=== PATIENT | male | born 1980 | race Caucasian/White ===

== ENCOUNTER → 2017-11-19 13:19 | Outpatient (CLI) | payer OTHER, SELFPAY ==
--- NOTE | 2017-11-19 | DI.MRI.S_ITS ---
PROCEDURE: MR LUMBAR SPINE WO CON INDICATIONS: LUMBAR RADICULOPATHY TECHNIQUE: Noncontrast sagittal T1 spin echo and T2 fast echo, sagittal STIR, axial T1 and T2 fast spin echo through the lumbar spine. In cases with scoliosis, additional coronal T2 fast spin echo may be performed. COMPARISON: None. FINDINGS: Image quality: Excellent. Alignment and Curvature: There is normal bony alignment. Bone Marrow: Marrow is of normal overall signal. No acute vertebral body compression fractures. Spinal Cord: Conus medullaris terminates at the L1-L2 level. Visualized cord demonstrates normal signal and size. Paraspinous Soft Tissues: No paravertebral masses. L1-L2: Preserved disc height. Mild disc desiccation. There is diffuse posterior disc bulge. The central canal is mildly narrowed. No foraminal stenosis. L2-L3: Preserved disc height and disc signal. There is mild posterior disc bulge. The central canal is patent. No foraminal stenosis. L3-L4: Mild loss of disc height and disc signal. There is diffuse posterior disc bulge. The central canal is mildly narrowed. Mild bilateral foraminal stenosis. L4-L5: Mild loss of disc height and disc signal. There is diffuse posterior disc bulge and posterior central annular tear. The central canal is minimally narrowed. Mild bilateral foraminal stenosis. L5-S1: Atxp-ca-hinvhxwt loss of disc height and disc signal. There is diffuse posterior disc bulge and right posterior paramedian disc extrusion measuring 13 x 10 x 8 mm, occupying the right lateral recess between the S1 nerve root. Small right paramedian annular tear is noted. The central canal is patent. Moderate to severe left and moderate right foraminal stenosis. IMPRESSION: 1. Multilevel degenerative disc disease in lumbar spine as described. 2. Mild central canal stenosis at L2-L3 and L3-L4. 3. Multilevel foraminal stenoses as described. 4. Right posterior paramedian disc extrusion at L5-S1, which occupies the right lateral recess causing right S1 nerve root impingement. Dictated by: Doris Rodriguez M.D. on 11/19/2017 at 14:43 Approved by: Doris Rodriguez M.D. on 11/19/2017 at 14:54
== END ==
PROVIDERS: Family Provider Family Medicine; PCP Family Medicine; Visit Provider Family Medicine
DX: M51.16 Intervertebral disc disorders with radiculopathy, lumbar region (principal); M48.061 Spinal stenosis, lumbar region without neurogenic claudication; M48.07 Spinal stenosis, lumbosacral region; M51.27 Other intervertebral disc displacement, lumbosacral region
CPT/HCPCS: 72148

== ENCOUNTER → 2019-12-19 10:30 | Outpatient (CLI) | payer OTHER, SELFPAY ==
[2019-12-20 07:41] LABS: COVID19 Sendout Not Detected (Not Detect)
== END ==
PROVIDERS: Family Provider Family Medicine; PCP Family Medicine; Visit Provider Physician Assistant
DX: Z11.59 Encounter for screening for other viral diseases (principal)
CPT/HCPCS: 87635

== ENCOUNTER → 2020-01-24 09:10 | Outpatient (CLI) | payer OTHER, SELFPAY ==
[2020-01-24 15:05] LABS: COVID19 -Nasal RAPID Negative (Negative)
== END ==
PROVIDERS: Family Provider Family Medicine; PCP Family Medicine; Visit Provider Family Medicine Sleep Medicine
DX: Z11.59 Encounter for screening for other viral diseases (principal); G47.00 Insomnia, unspecified; G47.19 Other hypersomnia; G47.33 Obstructive sleep apnea (adult) (pediatric); R06.83 Snoring
CPT/HCPCS: 87635; C9803

== ENCOUNTER → 2022-07-28 09:41 | Outpatient (CLI) | payer OTHER, SELFPAY ==
--- NOTE | 2022-07-28 | DI.US.S_ITS ---
PROCEDURE: US ABDOMEN LIMITED INDICATIONS: UMBILICAL HERNIA TECHNIQUE: Real-time focused scanning was performed of the abdomen, with image documentation. COMPARISON: None. FINDINGS: Hernias are seen within the periumbilical region containing fat and bowel. Fascial defects are seen measuring 1.9 cm and 2.5 cm. IMPRESSION: Abdominal wall hernias are seen containing fat and bowel. Please consider surgical referral. If clinically appropriate, a dedicated CT of the area with at least IV contrast could also be considered for further evaluation. Dictated by: Vincent Castelan M.D. on 07/28/2022 at 16:45 Approved by: Vincent Castelan M.D. on 07/28/2022 at 16:47
== END ==
PROVIDERS: Family Provider Family Medicine; PCP Family Medicine; Referring Provider Family Medicine; Visit Provider Family Medicine
DX: K42.9 Umbilical hernia without obstruction or gangrene (principal)
CPT/HCPCS: 76705

== ENCOUNTER 2022-10-07 06:50 | Day surgery (SDC) | payer OTHER, SELFPAY ==
[2022-09-25 14:56] VITALS: BMI 29.9
[2022-10-07] VITALS (8 sets, daily range): BP systolic 86–126; BP diastolic 37–81; PULSE 87–99; RESP 10–18; TEMP 36.2–36.6; O2SAT 91–98; BMI 29.9
[2022-10-07] MEDS: LACTATED RINGERS 1,000 ML 42 ML IV (07:39)
--- NOTE | 2022-10-07 08:12 | PM.HP.1 ---
History of Present Illness History of Present Illness Date Patient Seen: 10/07/22 Time Patient Seen: 08:12 Chief complaint: Open Umbilical Hernia Repair w/mesh Narrative: 42-year-old man who presented with an umbilical hernia. See the office note from August for details. An ultrasound showed there were actually 2 fascial defects. [facility] Medical History (Updated 08/18/22 @ 10:36 by Geremias Mullins MD) Excessive daytime sleepiness Hypotestosteronism Insomnia (~2009) Obstructive sleep apnea (~12/21/19) Snoring (~2009) Surgical History (Updated 09/29/22 @ 10:53 by Nichole Castaneda RN) History of surgery (04/2012) History of surgery (05/2016) Hx of LASIK Family History Family/Other Diabetes mellitus Father Diabetes mellitus Depression Social History household members: spouse Smoking Status: Never smoker alcohol intake: current Meds Home Medications and Allergies Home Medications Medication Instructions Recorded Confirmed Type albuterol sulfate 90 mcg/actuation 2 puff INH Q4H PRN #1 ea 03/21/17 10/07/22 Rx aerosol inhaler (Ventolin HFA) testosterone cypionate 100 mg/mL 100 mg IM Q2W 12/05/19 10/07/22 History intramuscular oil dulaglutide 3 mg/0.5 mL 3 mg SUBCUT QWEEK 09/29/22 10/07/22 History subcutaneous pen injector (Trulicity) insulin glargine 100 unit/mL (3 10 unit SUBCUT DAILY 09/29/22 10/07/22 History mL) subcutaneous pen (Lantus Solostar U-100 Insulin) metformin 1,000 mg tablet 1,000 mg PO BID 09/29/22 10/07/22 History Novolin N FlexPen See Rx Instructions .Route .COMPLEX 10/07/22 10/07/22 History Allergies Allergy/AdvReac Type Severity Reaction Status Date / Time prednisone AdvReac High Blood Verified 10/07/22 07:11 Sugar Exam Vital Signs (past 8 hours): - 10/07/22 07:33 Temperature 97.8 F Pulse Rate 87 Respiratory Rate 17 Blood Pressure 126/81 Pulse Oximetry 97 Oxygen Delivery Method Room Air Oxygen Delivery Method Room Air Narrative Exam Narrative: Small reducible umbilical hernia Assessment & Plan Assessment and plan (1) Umbilical hernia without obstruction and without gangrene: Status: Acute Plan We discussed risks and benefits of open umbilical hernia repair with mesh. If there are 2 fascial defects I will repair both through the same skin incision. He would like to proceed.
[2022-10-07] MEDS: CEFAZOLIN 2 GM/100 ML PREMIX 100 ML IV (08:20)
[2022-10-07] MEDS: BUPIVACAINE 0.5% (PF) 30 ML, EPINEPHrine 0.15 MG INJ (08:30)
[2022-10-07] MEDS: ACETAMINOPHEN IV 1,000 MG/100 ML VIAL 400 MG IV (08:30)
--- NOTE | 2022-10-07 08:54 | P.OP_ITS ---
Operative Date/Time/Diagnoses Date of procedure: 10/07/22 Time of procedure: 08:54 Pre-op diagnosis: Umbilical hernia Post-op diagnosis: same Procedure & Clinicians Procedure: Open umbilical hernia repair with mesh Same procedure as scheduled: Yes Surgeon: Geremias Mullins Swage Toolsetter: Alfonso Hermosillo Anesthesia Type: General Operative Notes Procedure in detail: Ancef was administered. The patient was brought to the operating room, placed on the table in the supine position and general endotracheal anesthesia was induced. The abdomen was prepped and draped in the usual fashion. A time-out was performed. A 6 cm curvilinear incision was made inferior to the umbilicus. The hernia sac was dissected free from the surrounding subcutaneous adipose tissue. The hernia was dissected off the umbilical stalk using a combination of cautery, sharp and blunt dissection. The fat containing hernia was dissected free from the fascial ring and allowed to drop back down into the abdomen. The fascia was then closed transversely with 3 interrupted 0 Ethibond sutures. The subcutaneous adipose tissue was cleared off of the anterior sheath circumferentially about 2 cm in each direction. A piece of polypropylene mesh was trimmed to fit over the fascial closure and secured with Tisseel. Once the Tisseel was dried the umbilical skin was tacked down to the mesh with a single 3-0 Vicryl stitch. The skin was closed with multiple interrupted 3-0 Vicryl dermal sutures followed by a running 4 Monocryl subcuticular closure. Steri-Strips were applied and an abdominal binder was applied. EBL: 2 mL Post-operative Disposition: PACU
--- NOTE | 2022-10-07 09:23 | SUR.PHASEI ---
BG post op 92
--- NOTE | 2022-10-07 10:22 | SUR.PHASEII ---
pt and both state they understand discharge instructions. Pt discharged with .
== END 2022-10-07 10:23 | disposition home or self-care (01) ==
PROVIDERS: Family Provider Family Medicine; PCP Family Medicine; Referring Provider Surgery; Visit Provider Surgery
PROC: (CPT 49593; principal; 2022-10-07 08:00)
DX: K42.9 Umbilical hernia without obstruction or gangrene (principal); G47.33 Obstructive sleep apnea (adult) (pediatric)
CPT/HCPCS: 49593; J0131; J0171; J0690; J1100; J1885; J2405; J2704; J3010

== ENCOUNTER 2023-11-16 09:24 | Emergency (ER) | payer OTHER, SELFPAY ==
[2023-11-16 09:36] VITALS: BP 160/105; PULSE 97; RESP 14; TEMP 36.7; O2SAT 99; BMI 31.4
--- NOTE | 2023-11-16 11:05 | ED_ITS ---
HPI - Neuro Symptoms/Deficit General Chief Complaint: Neuro Symptoms/Deficit Stated Complaint: L Arm Injury, Unable to open L Hand Time Seen by Provider: 11/16/23 10:59 Source: patient Mode of arrival: Ambulatory Limitations: no limitations History of Present Illness HPI Narrative: 43-year-old male insulin-dependent diabetic the past 3 years presents with complaint of left neck/thoracic pain and weakness of the left hand. Patient states he has had some chronic discomfort in his neck on and off. He has occasionally had some numbness and tingling particularly the 4th and 5th digits. Two days ago on Thursday he was doing some work around his home the ladder started to fall and he extended his arms upward grabbing it sort of pulling down with his weight. Patient felt what felt like a pop or something give in the upper thoracic back on the left. Patient states since then he is noticed some increased weakness of the left arm and hand. 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 He was also appreciate a little bit of paresthesias. He states no pain in his spinal column itself. He describes the pain is behind the shoulder upper thoracic region. It is worse with movement he does note some increased discomfort with rotation of the neck but no increase of paresthesias with rotation. Has had prior surgery of the left AC joint. Patient states has seen his primary care physician in the past but did not have weakness associated. He has been on insulin for about 3 years also takes testosterone and Trulicity. No tobacco, occasional alcohol, no recreational drugs. Dr. Moya is his primary care physician. On Anticoagulants: No Related Data Home Medications Medication Instructions Recorded Confirmed testosterone cypionate 100 mg/mL 100 mg IM Q2W 12/05/19 11/05/22 intramuscular oil dulaglutide 3 mg/0.5 mL 3 mg SUBCUT QWEEK 09/29/22 11/05/22 subcutaneous pen injector (Trulicity) insulin glargine 100 unit/mL (3 10 unit SUBCUT DAILY 09/29/22 11/05/22 mL) subcutaneous pen (Lantus Solostar U-100 Insulin) metformin 1,000 mg tablet 1,000 mg PO BID 09/29/22 11/05/22 Novolin N FlexPen See Rx Instructions .Route .COMPLEX 10/07/22 11/05/22 Previous Rx's Medication Instructions Recorded albuterol sulfate 90 mcg/actuation 2 puff INH Q4H PRN #1 ea 03/21/17 aerosol inhaler (Ventolin HFA) cyclobenzaprine 10 mg tablet 10 mg PO TID PRN muscle spasm #14 11/16/23 tabs methylprednisolone 4 mg tablets in See Rx Instructions PO .COMPLEX 11/16/23 a dose pack (Medrol (Elkin)) #21 ea Allergies Allergy/AdvReac Type Severity Reaction Status Date / Time prednisone AdvReac High Blood Verified 11/16/23 09:41 Sugar Review of Systems Review of Systems ROS Unobtainable: All systems reviewed & are unremarkable except as noted in HPI and below Hematologic/Lymphatic On Anticoagulants: No Patient History Medical History Hypotestosteronism Excessive daytime sleepiness Snoring (~2009) Insomnia (~2009) Obstructive sleep apnea (~12/21/19) Surgical History History of surgery (05/2016) History of surgery (04/2012) Hx of LASIK Family History Family/Other Diabetes mellitus Father Diabetes mellitus Depression Social History household members: spouse Smoking Status: Never smoker alcohol intake: current Smoking Status: Never smoker alcohol intake frequency: a few times a week Substance Use Type: does not use Exam Narrative Exam Narrative: GEN: well nourished, well appearing male, alert and oriented x 3, patient appears to be in mild distress. HEENT: Atraumatic, pupils are equal round reactive to light, extraocular movements are intact, nares are clear. No cervical vertebral tenderness. Full range of motion. HEART: Regular rate and rhythm without murmur, clicks, rubs. LUNGS:Lungs clear to auscultation, no wheezes, rales, crackles, chest moves symmetrically ABD:bowel sounds normal, soft, non-tender, no guarding, rebound, rigidity, no masses noted, no hepatosplenomegaly MSCL: Non-tender, no muscle atrophy, no cervical or thoracic or lumbar vertebral tenderness. Patient's describes some discomfort lateral to the C7-T1 region and changed it to the scapular area. Full range of motion of bilateral upper extremities. Patient does have decrease in guest service team leader and strength of left compared to right but describes it as 4/5. Patient also has some decrease of strength with resistance with straight arms extended fully. No tenderness over the biceps region, nontender over the AC joint scapula or clavicle. 2+ radial pulses bilaterally. Patient does have sensation to light touch bilateral upper extremities. NEURO:CN 2-12 intact, sensation normal. SKIN: No rash, erythema or other skin changes. Initial Vital Signs Initial Vital Signs: Vital Signs Temperature 98.0 F 11/16/23 09:36 Pulse Rate 97 H 11/16/23 09:36 Respiratory Rate 14 11/16/23 09:36 Blood Pressure 160/105 H 11/16/23 09:36 Pulse Oximetry 99 11/16/23 09:36 Oxygen Delivery Method Room Air 11/16/23 09:36 Course Orders Ordered: ED Orders 11/16/23 11:18 CT cervical spine wo con Stat 11/16/23 12:48 MR cervical spine wo con Stat Discontinued Medications Ketorolac Tromethamine (Ketorolac 30 Mg/Ml Vial) 30 mg IM NOW ONE Stop: 11/16/23 11:20 Last Admin: 11/16/23 11:29 Dose: 30 mg Documented By: EMELIA Vital Signs Vital signs: Vital Signs - 8 hr 11/16/23 09:36 11/16/23 12:46 11/16/23 12:47 Temperature 98.0 F Pulse Rate 97 H 82 80 Respiratory Rate 14 18 Blood Pressure 160/105 H 124/80 Pulse Oximetry 99 97 97 Oxygen Delivery Method Room Air Room Air 11/16/23 12:47 11/16/23 12:47 11/16/23 15:47 Temperature Pulse Rate 77 81 Respiratory Rate Blood Pressure 124/80 Pulse Oximetry 97 96 Oxygen Delivery Method 11/16/23 15:48 Temperature Pulse Rate Respiratory Rate Blood Pressure 135/81 Pulse Oximetry Oxygen Delivery Method MDM - Neuro Symptoms/Deficit Imaging Data CT cervical spine: Radiologist's Impression: [address] [address] [address] Scan Report Signed Patient: Alfonso Snow MR#: [id number] : 1980 Acct:[id number] Age/Sex: 43 / M Date of Service: 11/16/23 Loc: ED Accession Number: [id number] Procedure: CT cervical spine wo con Ordering Provider: Jannette Campos D.O. PROCEDURE: CT CERVICAL SPINE WO CON INDICATIONS: pain left neck/trap, weak left hand after abrupt pulling mot TECHNIQUE: Noncontrast 3 mm thick sections acquired from the skull base to the T4 level. Sagittal and coronal reformats were then constructed. For radiation dose reduction, the following was used: automated exposure control, adjustment of mA and/or kV according to patient size. COMPARISON: None. FINDINGS: Image quality: Excellent. Bones: No fractures or traumatic subluxation. Straightening of the normal cervical lordosis. Mild multilevel degenerative changes with osteophytosis, disc height loss and facet/uncal arthropathy. Small disc osteophyte complexes at C5-C6 and C6-C7 with mild ventral effacement of the central canal. Visualized superior ribs are intact. Soft tissues: Prevertebral soft tissues are normal in thickness. No paravertebral hematomas. No apical pneumothoraces. Scattered punctate calcifications in the bilateral parotid glands. Small mucous retention cyst in the left maxillary sinus. IMPRESSION: 1. No displaced fracture or traumatic subluxation. 2. Straightening of the normal cervical lordosis which may be secondary to muscular strain/spasm. 3. Mild multilevel degenerative changes, notably at C5-C6 and C6-C7. If clinical symptoms persist, consider an MRI for further evaluation. 4. Scattered calcifications in the parotid gland which is nonspecific and can be seen in the setting of chronic inflammatory conditions, autoimmune disease, etc. Dictated by: Iban Thorne M.D. on 11/16/2023 at 11:03 Approved by: Iban Thorne M.D. on 11/16/2023 at 11:08 cervical MR: Radiologist's Impression: [place] [address] Magnetic Resonance Report Signed Patient: Alfonso Snow MR#: [id number] : 1980 Acct:[id number] Age/Sex: 43 / M Date of Service: 11/16/23 Loc: ED Accession Number: [id number] Procedure: MR cervical spine wo con Ordering Provider: Mank,Jannette C D.O. PROCEDURE: MR CERVICAL SPINE WO CON INDICATIONS: left hand weakness, neck pain, left 4/5 fingers numb TECHNIQUE: Noncontrast sagittal T1 spin echo and T2 fast spin echo, sagittal STIR, foramin al oblique sagittal T2 fast spin echo, and axial gradient echo or T2 fast spin echo through the cervical spine. COMPARISON: CT cervical spine 11/16/2023. FINDINGS: Image quality: Diagnostic. Alignment and Curvature: Straightening the normal cervical lordosis. Multilevel intervertebral disc height loss. Multilevel disc osteophyte complex, worse at C6-C7 resulting in moderate effacement and narrowing of the central canal. Moderate posterior disc osteophyte complex with mild effacement and narrowing of the central canal at C7-T12. Small posterior disc osteophyte complex at C5-C6 Bone Marrow: Marrow demonstrates normal overall signal. Spinal Cord: Visualized spinal cord has normal size and signal. No cerebellar tonsillar herniation. Paraspinous Soft Tissues: No paravertebral masses. Prevertebral soft tissues are normal in thickness. C2-C3: Normal appearance. C3-C4: Normal appearance. C4-C5: Normal appearance. C5-C6: Posterior disc osteophyte complex resulting in minimal effacement of central canal. C6-C7: Posterior disc osteophyte complex resulting in moderate to severe effacement and narrowing of the central canal. C7-T1: Posterior disc osteophyte complex resulting in mild effacement of the central canal. IMPRESSION: Multilevel degeneration, worse at C6-C7 with moderate to severe effacement and narrowing of the central canal. Approved by: Skyla Vivas M.D.,Ph.D. on 11/16/2023 at 15:08 MDM Narrative Medical decision making narrative: Patient's location of pain seems most consistent with possible musculoskeletal issue could not have an injury to the muscle or ligament itself but patient does have slight decrease in guest service team leader and left upper extremity strength in overall. Suspect patient may have had more involvement of the cervical spine or nerves. Patient has had some baseline paresthesias of the 4th and 5th fingers in the past and had some discomfort in the neck in the past but not to this extent. CT cervical spine was obtained unlikely to have fracture but we will evaluate for joint spacing and cervical canal. Cervical MR, multilevel degenerative worse at C6-7 with moderate to severe effacement of the central canal at C7-T12. There is some narrowing of the central canal. Spoke with on-call Orthopedic surgery, spoke with Dr. Grier. Recommends steroid Dosepak, muscle relaxer anti-inflammatories. Does note patient's has diabetes so could affect sugars. We would recommend outpatient follow up with either Dr. Beck or Dr. Lepe if not improving may require epidural injections versus decompression. Discussed with patient recommendations, return precautions as well as red flag symptoms. All questions answered. Patient does have follow up with Dr. Moya available as needed. Discussed with patient return precautions if he is having worsening weakness he should return for re-evaluation. Discharge Plan Departure Patient Disposition: Home Clinical Impression: Cervical radiculopathy Instructions: DI for Cervical Radiculopathy Activity Restrictions/Additional Instructions: Follow up with either orthopedic surgery or pain management. Contacts included for both below. There is some narrowing at the C5-6 region of the spinal canal as well as effacement. It was recommended by Orthopedic surgery to have a short course of steroids, muscle relaxers and anti-inflammatories. If your blood sugar is very difficult to control you can stop the steroids. Take muscle relaxers as needed. You can take 1 tablet every 8 hours. This medication can make you sleepy do not drive, perform has a activities or make major decisions while taking it. Take NSAIDs you can take up to 800 mg of ibuprofen every 8 hours as needed. You can take Tylenol with this medication up to a 1000 mg every 6 hours as needed. Prescription were sent to [facility] in [place]. Please return for rapidly worsening symptoms increasing weakness, increasing difficulty with guest service team leader or strength, new pain inability to lift or move your arm, loss of bowel or bladder control or other new or concerning changes. Prescriptions: New cyclobenzaprine 10 mg tablet 10 mg PO TID PRN (Reason: muscle spasm) Qty: 14 0RF methylprednisolone [Medrol (Elkin)] 4 mg tablets,dose pack See Rx Instructions .ROUTE .COMPLEX Qty: 21 0RF Rx Instructions: 6 tabs p.o. x1 day, then 5 tabs p.o. x1 day, then 4 tablets p.o. x1 day, then 3 tabs p.o. x1 day, then 2 tabs p.o. x1 day, then 1 tab p.o. x1 day No Action albuterol sulfate [Ventolin HFA] 90 MCG/PUFF HFA aerosol inhaler 2 puff INH Q4H PRNQty: 1 0RF metformin 1,000 mg Tablet 1,000 mg PO BID insulin glargine [Lantus Solostar U-100 Insulin] 100 unit/mL (3 mL) Insulin Pen 10 unit SUBCUT DAILY Trulicity 3 mg/0.5 mL Pen Injector 3 mg SUBCUT QWEEK Novolin N FlexPen See Rx Instructions .ROUTE .COMPLEX Rx Instructions: Sliding scale testosterone cypionate 100 mg/mL oil 100 mg IM Q2W Referrals: Jake Lepe DO [Physician] - Angel Ferrell MD [Physician] - Billy Moya MD [Primary Care Provider] - Stand Alone Forms: Patient Portal/API
--- NOTE | 2023-11-16 11:18 | DI.CT.S_ITS ---
PROCEDURE: CT CERVICAL SPINE WO CON INDICATIONS: pain left neck/trap, weak left hand after abrupt pulling mot TECHNIQUE: Noncontrast 3 mm thick sections acquired from the skull base to the T4 level. Sagittal and coronal reformats were then constructed. For radiation dose reduction, the following was used: automated exposure control, adjustment of mA and/or kV according to patient size. COMPARISON: None. FINDINGS: Image quality: Excellent. Bones: No fractures or traumatic subluxation. Straightening of the normal cervical lordosis. Mild multilevel degenerative changes with osteophytosis, disc height loss and facet/uncal arthropathy. Small disc osteophyte complexes at C5-C6 and C6-C7 with mild ventral effacement of the central canal. Visualized superior ribs are intact. Soft tissues: Prevertebral soft tissues are normal in thickness. No paravertebral hematomas. No apical pneumothoraces. Scattered punctate calcifications in the bilateral parotid glands. Small mucous retention cyst in the left maxillary sinus. IMPRESSION: 1. No displaced fracture or traumatic subluxation. 2. Straightening of the normal cervical lordosis which may be secondary to muscular strain/spasm. 3. Mild multilevel degenerative changes, notably at C5-C6 and C6-C7. If clinical symptoms persist, consider an MRI for further evaluation. 4. Scattered calcifications in the parotid gland which is nonspecific and can be seen in the setting of chronic inflammatory conditions, autoimmune disease, etc. Dictated by: Iban Thorne M.D. on 11/16/2023 at 11:03 Approved by: Iban Thorne M.D. on 11/16/2023 at 11:08
[2023-11-16] MEDS: KETOROLAC 30 MG/ML VIAL IM (11:29)
[2023-11-16 12:46] VITALS: PULSE 82; O2SAT 97
[2023-11-16 12:47] VITALS: BP 124/80; PULSE 77; PULSE 80; RESP 18; O2SAT 97
--- NOTE | 2023-11-16 12:48 | DI.MRI.S_ITS ---
PROCEDURE: MR CERVICAL SPINE WO CON INDICATIONS: left hand weakness, neck pain, left 4/5 fingers numb TECHNIQUE: Noncontrast sagittal T1 spin echo and T2 fast spin echo, sagittal STIR, foraminal oblique sagittal T2 fast spin echo, and axial gradient echo or T2 fast spin echo through the cervical spine. COMPARISON: CT cervical spine 11/16/2023. FINDINGS: Image quality: Diagnostic. Alignment and Curvature: Straightening the normal cervical lordosis. Multilevel intervertebral disc height loss. Multilevel disc osteophyte complex, worse at C6-C7 resulting in moderate effacement and narrowing of the central canal. Moderate posterior disc osteophyte complex with mild effacement and narrowing of the central canal at C7-T12. Small posterior disc osteophyte complex at C5-C6 Bone Marrow: Marrow demonstrates normal overall signal. Spinal Cord: Visualized spinal cord has normal size and signal. No cerebellar tonsillar herniation. Paraspinous Soft Tissues: No paravertebral masses. Prevertebral soft tissues are normal in thickness. C2-C3: Normal appearance. C3-C4: Normal appearance. C4-C5: Normal appearance. C5-C6: Posterior disc osteophyte complex resulting in minimal effacement of central canal. C6-C7: Posterior disc osteophyte complex resulting in moderate to severe effacement and narrowing of the central canal. C7-T1: Posterior disc osteophyte complex resulting in mild effacement of the central canal. IMPRESSION: Multilevel degeneration, worse at C6-C7 with moderate to severe effacement and narrowing of the central canal. Approved by: Skyla Vivas M.D.,Ph.D. on 11/16/2023 at 15:08
[2023-11-16 15:47] VITALS: PULSE 81; O2SAT 96
[2023-11-16 15:48] VITALS: BP 135/81
--- NOTE | 2023-11-16 17:38 | PC.NURSE ---
Pt called stating that pharmacy was closed. Discussed w/ Dr. Campos who ordered po doses for pt who picked up at ED. Instructed to coal picker meds as ordered in the am. Pt verbalized understanding.
[2023-11-16] MEDS: predniSONE 20 MG TABLET 60 MG PO (17:44)
[2023-11-16] MEDS: CYCLOBENZAPRINE 10 MG TABLET PO (17:44)
== END 2023-11-16 16:03 | disposition home or self-care (01) ==
PROVIDERS: Emergency Provider Emergency Medicine; Family Provider Family Medicine; PCP Family Medicine
DX: M54.12 Radiculopathy, cervical region (principal); R53.1 Weakness; Z79.899 Other long term (current) drug therapy
CPT/HCPCS: 72125; 72141; 96372; 99284; J1885

== ENCOUNTER → 2023-11-23 11:30 | Outpatient (CLI) | payer OTHER, SELFPAY ==
--- NOTE | 2023-11-23 11:32 | DI.RAD.S_ITS ---
PROCEDURE: XR CERVICAL SPINE 4V OR 5V INDICATIONS: NECK PAIN TECHNIQUE: 5 views of the cervical spine acquired. COMPARISON: None. FINDINGS: Bones: No fractures or dislocations to the T1 level. Oblique images demonstrate no bony foraminal stenoses. Mild disc height loss at C5-6, C6-7, C7-T1, C4-5. No significant facet arthrosis. Soft tissues: No prevertebral soft tissue swelling. IMPRESSION: Mild, multilevel degenerative disc disease without significant facet arthrosis. Dictated by: Richard York M.D. on 11/23/2023 at 12:19 Approved by: Richard York M.D. on 11/23/2023 at 12:20
== END ==
PROVIDERS: Family Provider Family Medicine; PCP Family Medicine; Referring Provider Physical Medicine & Rehabilitation; Visit Provider Physical Medicine & Rehabilitation
DX: M50.121 Cervical disc disorder at C4-C5 level with radiculopathy (principal)
CPT/HCPCS: 72050

== ENCOUNTER → 2023-11-26 08:49 | Outpatient (CLI) | payer OTHER, SELFPAY | PROVIDERS: Family Provider Family Medicine; PCP Family Medicine; Referring Provider Physical Medicine & Rehabilitation; Visit Provider Physical Medicine & Rehabilitation | DX: M54.12 Radiculopathy, cervical region (principal) | CPT/HCPCS: 95886; 95912 ==

== ENCOUNTER 2023-12-22 07:30 | Outpatient (CLI) | payer OTHER, SELFPAY ==
[2023-12-22] VITALS (9 sets, daily range): BP systolic 111–133; BP diastolic 60–78; PULSE 86–96; RESP 9–16; TEMP 37; O2SAT 94–98
--- NOTE | 2023-12-22 08:12 | DI.RAD.S_ITS ---
PROCEDURE: PAIN C/T INTERLAMINAR INJECT INDICATIONS: para left C6/7 TL ENEDINA COMPARISON: None. FINDINGS: Fluoroscopic spot filming was performed to verify placement of spinal needles at the C6-C7 level(s), as labeled on the films. Appropriate location(s) of the needle tip(s) was confirmed by injection of iodinated contrast. IMPRESSION: C6-C7 injection with fluoroscopic guidance. Please see operative note for full details. Dictated by: Deandre Mata M.D. on 12/22/2023 at 9:11 Approved by: Deandre Mata M.D. on 12/22/2023 at 9:12
[2023-12-22] MEDS: MIDAZOLAM 2 MG/2 ML VIAL IV (08:23)
[2023-12-22] MEDS: BUPIVACAINE 0.25% (PF) VIAL 2 ML INJ (08:28)
[2023-12-22] MEDS: DEXAMETHASONE 10 MG/ML VIAL 30 MG INJ (08:28)
[2023-12-22] MEDS: iopamidoL 15 ML VIAL 3 ML INJ (08:29)
--- NOTE | 2023-12-22 08:41 | P.PCN_ITS ---
Date/Time/Diagnoses Date of procedure: 12/22/23 Time of procedure: 08:41 Pre-procedure diagnosis: 1. CERVICAL STENOSIS, 2. CERVICAL HNP WITH UPPER EXTREMITY RADICULAR FEATURES Post-procedure diagnosis: same Procedure Notes Procedure: 1. FLUORSCOPICALLY GUIDED CONTRAST CONTROLLED INTERLAMINAR EPIDURAL STEROID INJECTION - C6/7 TL ENEDINA Indications: Alfonso is referred by Dr. Moya and Waterman for treatment of Cervical HNP with Upper Extremity Paresthesias. Physician: Jake Lepe Total Fluoroscopy time (seconds): 31 Total sedation minutes: 14 Complications: none Procedure in detail & Post-procedure care: FINDINGS Cervical Stenosis due to disc deterioration and nerve root irritation and nerve root irritation DESCRIPTION OF PROCEDURE Fluoroscopically guided, contrast-controlled C6/7 translaminar epidural steroid injection with conscious sedation. Following review of allergy and review of potential side effects and complications, including, but not necessarily limited to, infection, allergic reaction, local tissue breakdown, temporary as well as permanent nerve injury, stroke, paralysis, and possible , the patient indicated that patient understood and agreed to proceed. An informed consent document was signed by the patient, witnessed by a nurse, and placed in the patient's chart. Additionally, other treatment options including modalities, medications, and physical therapy were reviewed with the patient. After review of previous anaesthesic history and IV conscious sedation the patient was deemed safe to proceed with today?s procedure with IV conscious s edation as ASA class II designation. Safety time-out was performed to confirm patient ID, procedure to be performed and site of procedure. IV sedation was accomplished with a combination of 2mg of Versed administered by the RN after DO order, titrated to patient comfort during the course of the procedure while the patient remained responsive to all verbal commands. In the prone position, following sterile prep and drape of the cervical region, the C6/7 translaminar space was identified fluoroscopically. The skin was anesthetized via a 25-gauge 1.5-inch needle with 1% lidocaine solution. At this point, a 25-gauge, 2.5-inch short bevel spinal needle was atraumatically introduced and advanced under fluoroscopic guidance into epidural space at the C6/7 translaminar space. Depth was confirmed on lateral view. Radiological data, including multiple fluoroscopic views of the cervical spine, reveal a spinal needle at the C6/7 translaminar space. Lateral views then show placement of the needle in the epidural space. Subsequent views show contrast material flowing superiorly and inferiorly in the epidural space. DSA fluoroscopy with live contrast injection, once again, confirmed no vascular or intrathecal uptake. At this point, using loss of resistance technique with saline and air, the epidural space was entered. Following negative aspiration, injection of approximately 1.5 cc of Isovue-200 with live fluoroscopy in the AP view confirmed epidural flow in the epidural space without vascular or intrathecal uptake observed. Subsequently, a test dose of 1 cc of 1% lidocaine solution was injected and patient was observed for two minutes without signs or symptoms of complications, including abdominal pain, shortness of breath, bilateral upper or lower extremity weakness, nausea and vomiting, prior to steroid injection. At this point, 3cc or 30mg of dexamethasone was then injected without incident. The patient tolerated the procedure well without signs or symptoms of complications prior to being transferred to the recovery area for further monitoring, The patient was then transferred to the recovery area where they were observed for an appropriate period of time after the injection. The patient reported a VAS score of 6 prior to the procedure and a post-procedure VAS of 0. POST OP INSTRUCTIONS The patient was provided a Pain Log to continue to record their response to the target-specific procedure prior to follow-up visit with the referring provider. Additionally, specific post-injection care instructions and a contact number to our office were provided if concerns arise regarding possible complications associated with the procedure are suspected.
== END 2023-12-22 09:00 | disposition home or self-care (01) ==
LOC: RAD 07:30
PROVIDERS: Family Provider Family Medicine; PCP Family Medicine; Referring Provider Physical Medicine & Rehabilitation; Visit Provider Physical Medicine & Rehabilitation
DX: M48.02 Spinal stenosis, cervical region (principal); M50.123 Cervical disc disorder at C6-C7 level with radiculopathy
CPT/HCPCS: 62321; 99152; J1100; J2250; J3490

== ENCOUNTER → 2024-02-03 11:20 | Outpatient (CLI) | payer OTHER, SELFPAY ==
[2024-02-03 12:45] LABS: Appearance Urine UA CLEAR; Bilirubin Urine UA NEGATIVE (NEGATIVE); Color Urine UA YELLOW; Glucose Urine UA NEGATIVE (Negative); Ketones Urine UA TRACE (NEGATIVE); Leukocyte Esterase Urine UA NEGATIVE (NEGATIVE); Nitrite Urine UA NEGATIVE (Negative); Occult Blood Urine UA NEGATIVE (Negative); Protein Urine UA NEGATIVE (Negative); Urobilinogen Urine UA 0.2 E.U./dL (0.2)
[2024-02-03 12:50] LABS: Add Manual Diff / Slide Review NO; Basophils Absolute Auto 0 /uL (0-100); Basophils Percent Auto 0.5 % (0-2); Eosinophils Absolute Auto 100 /uL (0-450); Eosinophils Percent Auto 2.9 % (2-4); Hematocrit 44.4 % (41-53); Hemoglobin 15.1 g/dL (13.5-17.5); Lymphocytes Absolute Auto 1400 /uL (1100-4500); Lymphocytes Percent Auto 30.1 % (25-40); Mean Corpuscular HGB Conc 33.9 % (30-36); Mean Corpuscular Hemoglobin 30.9 PG (26-34); Mean Corpuscular Volume 91.2 fL (80-100); Monocytes Absolute Auto 400 /uL (0-900); Neutrophils Absolute Auto 2700 /uL (1500-7000); Neutrophils Percent Auto 57.5 % (50-75); Platelet Count 174 X10^3/uL (150-400); Red Blood Cell Count 4.87 X10^6/uL (4.5-5.9); Red Cell Distribution Width 13.5 % (11.6-14.8); White Blood Cell Count 4.7 X10^3/uL (4.5-11.0)
[2024-02-03 12:54] LABS: Bacteria Urine None Seen; Culture Indicated Urine Cult Not Indicated; RBC Urine None Seen (0-5/HPF); Squamous Epithelial Cell Urine None Seen (0-5/HPF); Urine Volume 10mL (spun); WBC Urine None Seen (0-5/HPF)
[2024-02-03 13:16] LABS: Alanine Aminotransferase 34 IU/L (<50); Albumin 4.5 g/dL (3.5-5.0); Albumin Globulin Ratio 1.9 (1.0-2.8); Alkaline Phosphatase 41 U/L (38-126); Aspartate Aminotransferase 28 IU/L (17-59); BUN Creatinine Ratio 22.8 (6-22); Bilirubin Total 0.8 mg/dL (0.2-1.3); Blood Urea Nitrogen 21 mg/dL (9-20); Calcium 9.7 mg/dL (8.4-10.2); Carbon Dioxide 30 mmol/L (22-32); Chloride 99 mmol/L (98-107); Estimated Glomerular Filt Rate > 60 mL/min (>60); Globulin 2.4 g/dL (1.7-4.1); Glucose 124 mg/dL (70-100); HEMOLYSIS < 15 (0-50); Sodium 137 mmol/L (137-145); Total Protein 6.9 g/dL (6.3-8.2)
[2024-02-03 13:44] LABS: Thyroid Stimulating Hormone 1.32 uIU/mL (0.47-4.68)
== END ==
LOC: LAB 11:24
PROVIDERS: Family Provider Family Medicine; PCP Family Medicine; Referring Provider Family Medicine; Visit Provider Family Medicine
DX: E10.9 Type 1 diabetes mellitus without complications (principal); R50.9 Fever, unspecified; R53.83 Other fatigue; R35.89 Other polyuria
CPT/HCPCS: 36415; 80053; 81001; 83036; 84443; 85025

== ENCOUNTER → 2024-02-04 13:08 | Outpatient (CLI) | payer OTHER, SELFPAY ==
[2024-02-04 13:37] LABS: Creatine Kinase 93 U/L (55-170)
[2024-02-08 12:12] LABS: Myoglobin Quantitative Urine < 2 ng/mL (0-13)
== END ==
PROVIDERS: Family Provider Family Medicine; PCP Family Medicine; Referring Provider Family Medicine; Visit Provider Family Medicine
DX: R50.9 Fever, unspecified (principal); R53.83 Other fatigue; Z98.1 Arthrodesis status
CPT/HCPCS: 36415; 82550; 83874

== ENCOUNTER → 2024-06-07 13:47 | Outpatient (CLI) | payer OTHER, SELFPAY ==
--- NOTE | 2024-06-07 13:49 | DI.MRI.S_ITS ---
PROCEDURE: MR CERVICAL SPINE WO CON INDICATIONS: cervical ACDF with left C8 radic TECHNIQUE: Noncontrast sagittal T1 spin echo and T2 fast spin echo, sagittal STIR, foraminal oblique sagittal T2 fast spin echo, and axial gradient echo or T2 fast spin echo through the cervical spine. COMPARISON: [facility], MR, MR CERVICAL SPINE WO CON, 11/16/2023, 14:20. FINDINGS: Image quality: Excellent. Alignment and Curvature: There is normal bony alignment. Bone Marrow: Interval postsurgical changes from anterior fixation at C6 through T1. There is mild associated metal artifact. Marrow demonstrates normal overall signal. Spinal Cord: Visualized spinal cord has normal size and signal. No cerebellar tonsillar herniation. Paraspinous Soft Tissues: No paravertebral masses. Prevertebral soft tissues are normal in thickness. C2-C3: No significant spinal canal stenosis or neural foraminal narrowing. C3-C4: Mild uncovertebral joint and facet hypertrophy result in mild narrowing of the bilateral neural foramina without significant spinal canal stenosis. C4-C5: Disc desiccation and mild bilateral vertebral joint and facet hypertrophy. Findings result in mild narrowing of the bilateral neural foramina without significant spinal canal stenosis. C5-C6: Disc desiccation and mild bilateral uncovertebral joint and facet hypertrophy. Findings result in mild narrowing of the bilateral neural foramina without significant spinal canal stenosis. C6-C7: Postsurgical changes with decompression of the spinal canal. Uncovertebral joint and facet hypertrophy are present. Mild to moderate right and moderate left neural foraminal narrowing. C7-T1: Postsurgical changes with decompression of the spinal canal. Uncovertebral joint and facet hypertrophy are present. Residual moderate to severe bilateral neural foraminal narrowing. IMPRESSION: 1. Postsurgical changes at C6 through T1 with decompression of the spinal canal. 2. No high-grade spinal canal stenosis. 3. High-grade neural foraminal narrowing at the C7-T1 level bilaterally. At least moderate left neural foraminal narrowing at the C6-7 level. Approved by: Fernando Woodson M.D. on 06/07/2024 at 16:09
== END ==
PROVIDERS: Family Provider Family Medicine; PCP Family Medicine; Referring Provider Physical Medicine & Rehabilitation; Visit Provider Physical Medicine & Rehabilitation
DX: M54.12 Radiculopathy, cervical region (principal); M48.02 Spinal stenosis, cervical region; Z98.1 Arthrodesis status
CPT/HCPCS: 72141

== ENCOUNTER → 2024-07-21 12:49 | Outpatient (CLI) | payer OTHER, SELFPAY | LOC: PHYS 12:50 | PROVIDERS: Family Provider Family Medicine; PCP Family Medicine; Referring Provider Physical Medicine & Rehabilitation; Visit Provider Physical Medicine & Rehabilitation | DX: M43.22 Fusion of spine, cervical region (principal); M54.12 Radiculopathy, cervical region | CPT/HCPCS: 95886; 95911 ==

== ENCOUNTER 2024-08-25 07:31 | Outpatient (CLI) | payer OTHER, SELFPAY ==
[2024-08-25] VITALS (9 sets, daily range): BP systolic 128–189; BP diastolic 69–78; PULSE 92–103; RESP 13–18; TEMP 36.6; O2SAT 94–99
[2024-08-25] MEDS: MIDAZOLAM 2 MG/2 ML VIAL IV ×2 (08:26→08:31)
[2024-08-25] MEDS: BUPIVACAINE 0.25% (PF) VIAL 2 ML INJ (08:35)
[2024-08-25] MEDS: DEXAMETHASONE 10 MG/ML VIAL 30 MG INJ (08:36)
[2024-08-25] MEDS: iopamidoL 15 ML VIAL 3 ML INJ (08:36)
--- NOTE | 2024-08-25 08:48 | P.PCN_ITS ---
Date/Time/Diagnoses Date of procedure: 08/25/24 Time of procedure: 08:48 Pre-procedure diagnosis: 1. CERVICAL STENOSIS, 2. CERVICAL HNP WITH UPPER EXTREMITY RADICULAR FEATURES Procedure Notes Procedure: FLUORSCOPICALLY GUIDED CONTRAST CONTROLLED INTERLAMINAR EPIDURAL STEROID INJECTION - C7/T1 TL ENEDINA Indications: Alfonso is referred by Dr. Moya for treatment of Cervical Stenosis. Physician: Jake Lepe Total Fluoroscopy time (seconds): 33 Total sedation minutes: 17 Complications: none Procedure in detail & Post-procedure care: DESCRIPTION OF PROCEDURE Following review of allergy and review of potential side effects and com plications, including, but not necessarily limited to, infection, allergic reaction, local tissue breakdown, temporary as well as permanent nerve injury, stroke, paralysis, and possible , the patient indicated that patient understood and agreed to proceed. An informed consent document was signed by the patient, witnessed by a nurse, and placed in the patient's chart. Additionally, other treatment options including modalities, medications, and physical therapy were reviewed with the patient. After review of previous anaesthesic history and IV conscious sedation the patient was deemed safe to proceed with todays procedure with IV conscious sedation as ASA class II designation. Safety time-out was performed to confirm patient ID, procedure to be performed and site of procedure. IV sedation was accomplished with a combination of 4mg of Versed administered by the RN after DO order, titrated to patient comfort during the course of the procedure while the patient remained responsive to all verbal commands. In the prone position, following sterile prep and drape of the cervical region, the C7/T1 translaminar space was identified fluoroscopically. The skin was anesthetized via a 25-gauge 1.5-inch needle with 1% lidocaine solution. At this point, a 25-gauge, 2.5-inch short bevel spinal needle was atraumatically introduced and advanced under fluoroscopic guidance into epidural space at the C7/T1 translaminar space. Depth was confirmed on lateral view. Radiological data, including multiple fluoroscopic views of the cervical spine, reveal a spinal needle at the C7/T1 translaminar space. Lateral views then show placement of the needle in the epidural space. Subsequent views show contrast material flowing superiorly and inferiorly in the epidural space. DSA fluoroscopy with live contrast injection, once again, confirmed no vascular or intrathecal uptake. At this point, using loss of resistance technique with saline and air, the epidural space was entered. Following negative aspiration, injection of approximately 1.5 cc of Isovue-200 with live fluoroscopy in the AP view confirmed epidural flow in the epidural space without vascular or intrathecal uptake observed. Subsequently, a test dose of 1cc of 1% lidocaine solution was injected and patient was observed for two minutes without signs or symptoms of complications, including abdominal pain, shortness of breath, bilateral upper or lower extremity weakness, nausea and vomiting, prior to steroid injection. At this point, 3cc or 30mg of dexamethasone was then injected without incident. The patient tolerated the procedure well without signs or symptoms of complications prior to transfer to the recovery area for further monitoring The patient was then transferred to the recovery area where they were observed for an appropriate period of time after the injection. The patient reported a VAS score of 7 prior to the procedure and a post-procedure VAS of 1. POST OP INSTRUCTIONS The patient was provided a Pain Log to continue to record the patient's response to the target-specific procedure prior to the patient's follow-up visit with the referring physician. Additionally, specific post-injection care instructions and a contact number to our office were provided if concerns arise regarding possible complications associated with the procedure are suspected.
== END 2024-08-25 09:05 | disposition home or self-care (01) ==
LOC: RAD 07:31
PROVIDERS: Family Provider Family Medicine; PCP Family Medicine; Referring Provider Physical Medicine & Rehabilitation; Visit Provider Physical Medicine & Rehabilitation
DX: M48.02 Spinal stenosis, cervical region (principal); M50.13 Cervical disc disorder with radiculopathy, cervicothoracic region
CPT/HCPCS: 62321; 99152; J1100; J2250

== ENCOUNTER → 2025-03-06 12:15 | Outpatient (CLI) | payer OTHER, SELFPAY ==
--- NOTE | 2025-03-06 12:18 | DI.RAD.S_ITS ---
PROCEDURE: XR FINGER RT MIN 2V INDICATIONS: Finger pain, right TECHNIQUE: AP hand, 2 views of the right 4th finger(s) acquired. COMPARISON: None. FINDINGS: Bones: No acute fracture or dislocation. Joint spaces are well maintained. Soft tissues: No suspicious soft tissue calcifications. IMPRESSION: No acute bony abnormality. Dictated by: Christy Galloway M.D. on 03/06/2025 at 17:41 Approved by: Christy Galloway M.D. on 03/06/2025 at 17:42
== END ==
PROVIDERS: Family Provider Family Medicine; PCP Family Medicine; Referring Provider Family Medicine; Visit Provider Family Medicine
DX: M79.644 Pain in right finger(s) (principal)
CPT/HCPCS: 73140